=== PATIENT | male | born 1960 | race Caucasian/White ===

== ENCOUNTER 2021-04-06 16:24 | Observation (INO) ==
[2021-04-06] MEDS ORDERED: Pantoprazole 80 MG in 0.9 % Sodium Chloride 50 ML IVPB ONE (19:24)
[2021-04-06] MEDS ORDERED: 0.9 % Sodium Chloride 1,000 ML IVC ONE (19:24)
[2021-04-06] MEDS ORDERED: Isovue-370 500 ML BOTTLE IVP ONE (19:27)
[2021-04-06 19:39] LABS: Basophils # 0.1 K/mcL (0.0-0.2); Basophils % 0.5 %; Eosinophils % 0.4 %; Hemoglobin 11.1 g/dL (12.9-16.9); Immature Granulocytes % 0.4 % (0-4); Lymphocytes # 1.6 K/mcL (0.6-4.6); Lymphocytes % 14.3 %; Mean Corpuscular HGB Conc 34.7 g/dL (31.6-35.5); Mean Corpuscular Hemoglobin 34.4 pg (28.0-33.3); Mean Corpuscular Volume 99.1 fL (83.0-100.0); Monocytes # 0.4 K/mcL (0.0-1.3); Monocytes % 3.8 %; Neutrophils # 8.9 K/mcL (1.6-8.9); Platelet Count 265 K/mcL (140-400); Red Blood Count 3.23 M/mcL (4.19-5.50); Red Cell Distribution Width 12.2 % (11.5-14.5); Segmented Neutrophils % 80.6 %
[2021-04-06 19:48] LABS: INR 1.1; Prothrombin Time 11.8 Seconds (9.4-12.1)
[2021-04-06 19:50] LABS: Activated Partial Thrombo Time 25.1 Seconds (26.0-36.0)
[2021-04-06 20:00] LABS: BUN/Creatinine Ratio 34 (6-26); Blood Urea Nitrogen 28 mg/dL (6-20); Calcium 8.7 mg/dL (8.6-10.3); Carbon Dioxide 25 mEq/L (23-29); Chloride 108 mEq/L (98-107); Glucose 151 mg/dL (70-105); Lipase 46 Units/L (11-82); Osmolality,Calculated 298 (280-300); Potassium 3.8 mEq/L (3.5-5.1); Sodium 140 mEq/L (136-145); Troponin I < 0.03 ng/mL (< 0.04); eGFR For African Americans > 60 (> 60); eGFR For Non-African Americans > 60 (> 60)
[2021-04-06 20:48] LABS: Influenza A PCR Negative (Negative); Influenza B PCR Negative (Negative); Resp. Syncytial Virus PCR Negative (Negative); SARS-CoV-2 by PCR (In House) Negative (Negative)
[2021-04-06] MEDS ORDERED: Naloxone 0.4 MG/ML INJ IVP PRN (22:43)
[2021-04-06] MEDS ORDERED: Melatonin 3 MG TABLET PO PRN (22:43)
[2021-04-06] MEDS ORDERED: Ondansetron 4 MG/2 ML VIAL IVP PRN (22:43)
[2021-04-06] MEDS ORDERED: Acetaminophen 325 MG TABLET PO PRN (22:43)
[2021-04-06] MEDS ORDERED: 0.9 % Sodium Chloride 1,000 ML IVC SCH (22:45)
[2021-04-07] MEDS: Pantoprazole 40 MG VIAL IVP SCH ×2 (06:25→16:58)
[2021-04-07 07:50] LABS: Hematocrit 26.7 % (37.5-50.1); Mean Corpuscular HGB Conc 34.5 g/dL (31.6-35.5); Mean Corpuscular Hemoglobin 34.2 pg (28.0-33.3); Mean Corpuscular Volume 99.3 fL (83.0-100.0); Mean Platelet Volume 10.7 fL (9.4-12.4); Platelet Count 215 K/mcL (140-400); Red Blood Count 2.69 M/mcL (4.19-5.50); Red Cell Distribution Width 12.2 % (11.5-14.5)
[2021-04-07 07:51] LABS: Hemoglobin 9.2 g/dL (12.9-16.9)
[2021-04-07 08:01] LABS: INR 1.1; Prothrombin Time 12.2 Seconds (9.4-12.1)
[2021-04-07 08:04] LABS: Activated Partial Thrombo Time 27.9 Seconds (26.0-36.0)
[2021-04-07 08:16] LABS: BUN/Creatinine Ratio 25 (6-26); Blood Urea Nitrogen 20 mg/dL (6-20); Calcium 7.9 mg/dL (8.6-10.3); Carbon Dioxide 23 mEq/L (23-29); Chloride 111 mEq/L (98-107); Glucose 91 mg/dL (70-105); Osmolality,Calculated 294 (280-300); Potassium 3.7 mEq/L (3.5-5.1); Sodium 141 mEq/L (136-145); eGFR For African Americans > 60 (> 60); eGFR For Non-African Americans > 60 (> 60)
[2021-04-07] MEDS: *HR* HYDROcodone/Acet 5/325 mg TABLET PO PRN (09:34)
[2021-04-07 13:58] LABS: Hematocrit 23.3 % (37.5-50.1); Hemoglobin 8.1 g/dL (12.9-16.9)
[2021-04-07 18:56] LABS: Hematocrit 24.3 % (37.5-50.1); Hemoglobin 8.5 g/dL (12.9-16.9)
[2021-04-08 01:18] LABS: BUN/Creatinine Ratio 13 (6-26); Blood Urea Nitrogen 10 mg/dL (6-20); Calcium 7.9 mg/dL (8.6-10.3); Carbon Dioxide 27 mEq/L (23-29); Chloride 110 mEq/L (98-107); Glucose 95 mg/dL (70-105); Osmolality,Calculated 287 (280-300); Sodium 139 mEq/L (136-145); eGFR For African Americans > 60 (> 60); eGFR For Non-African Americans > 60 (> 60)
[2021-04-08 01:30] LABS: Basophils # 0.1 K/mcL (0.0-0.2); Basophils % 0.9 %; Eosinophils # 0.4 K/mcL (0.0-0.6); Eosinophils % 6.5 %; Hemoglobin 8.6 g/dL (12.9-16.9); Immature Granulocytes % 0.4 % (0-4); Mean Corpuscular HGB Conc 34.4 g/dL (31.6-35.5); Mean Corpuscular Hemoglobin 33.9 pg (28.0-33.3); Mean Corpuscular Volume 98.4 fL (83.0-100.0); Mean Platelet Volume 10.9 fL (9.4-12.4); Monocytes # 0.6 K/mcL (0.0-1.3); Monocytes % 9.4 %; Neutrophils # 3.6 K/mcL (1.6-8.9); Platelet Count 199 K/mcL (140-400); Red Blood Count 2.54 M/mcL (4.19-5.50); Red Cell Distribution Width 12.3 % (11.5-14.5); Segmented Neutrophils % 52.8 %; White Blood Count 6.8 K/mcL (4.3-11.1)
[2021-04-08] MEDS: Pantoprazole 40 MG VIAL IVP SCH ×2 (04:28→17:16)
[2021-04-08] MEDS: *HR* HYDROcodone/Acet 5/325 mg TABLET PO PRN (20:19)
[2021-04-09] MEDS: Pantoprazole 40 MG VIAL IVP SCH (06:14)
[2021-04-09 06:52] LABS: Hematocrit 26.4 % (37.5-50.1); Hemoglobin 8.8 g/dL (12.9-16.9)
[2021-04-09 07:13] LABS: BUN/Creatinine Ratio 12 (6-26); Blood Urea Nitrogen 10 mg/dL (6-20); Calcium 8.3 mg/dL (8.6-10.3); Carbon Dioxide 27 mEq/L (23-29); Chloride 107 mEq/L (98-107); Glucose 93 mg/dL (70-105); Osmolality,Calculated 285 (280-300); Potassium 3.7 mEq/L (3.5-5.1); Sodium 138 mEq/L (136-145); eGFR For African Americans > 60 (> 60); eGFR For Non-African Americans > 60 (> 60)
[2021-04-09] MEDS ORDERED: *HR* Propofol 200 MG/20 ML VIAL IVP ONE (11:22)
[2021-04-09] MEDS ORDERED: Lidocaine -MPF 2% 5 ML VIAL ONE (11:22)
[2021-04-09 13:54] VITALS: TEMP 97.9
[2021-04-09 15:08] VITALS: BP 105/60; PULSE 68; O2SAT 98
== END 2021-04-09 16:28 | disposition home or self-care (01) ==
LOC: 3ANU 16:24 → EMEROOARM 16:24 → SUATTDRO 22:53 → 3ANU 23:24
PROVIDERS: ADMIT Internal Medicine; ATTEND Family Medicine